=== PATIENT | male | born 1980 | race Caucasian/White ===

== ENCOUNTER 2016-03-28 17:19 | Inpatient (IN) | payer OTHER ==
[~2016-03-28] VITALS: Ht 167.6 cm; Wt 56.4 kg
[~2016-03-28 17:19] MED LIST: CARI350T28 PO; PRCUNK
[2016-03-28] MEDS ORDERED: PATIENT'S HEIGHT AND/OR WEIGHT NEEDED SCH (18:15)
[2016-03-28] MEDS ORDERED: PIPERACILL/TAZOBAC CONSULT ACTIVE PRN (18:15)
[2016-03-28] MEDS ORDERED: PIPERACILL/TAZOBAC IV 3.375 GM in DEXTROSE 5% 100ML 100 ML IV ONE (18:15)
[2016-03-28] MEDS ORDERED: ONDANSETRON INJ 2 MG/ML 2 ML VIAL IV PRN (18:15)
[2016-03-28] MEDS ORDERED: LEVE250T PO (18:17)
[2016-03-28] MEDS ORDERED: RTL20 PO (18:17)
[2016-03-28] MEDS ORDERED: ALPR1TAB3 PO (18:17)
[2016-03-28 18:20] VITALS: BP 113/76; PULSE 87; TEMP 36.8; Ht 167.6 cm; Wt 56.4 kg
[2016-03-28 18:56] LABS: HEMATOCRIT 30.7 % (42-52); MEAN CORPUSCULAR HEMOGLOBIN 29.2 pg (25-34); MEAN CORPUSCULAR HGB CONC 33.6 g/dl (32-36); MEAN PLATELET VOLUME 8.2 fL (7.4-10.4); PLATELET COUNT 596 K/uL (130-400); RED BLOOD COUNT 3.53 M/uL (4.7-6.1); WHITE BLOOD COUNT 19.22 K/uL (4.8-10.8)
[2016-03-28] MEDS ORDERED: PNEUMOCOCCAL POLYSACCHARIDES 25 MCG/0.5 ML VIAL/SYR IM. ONE (19:00)
[2016-03-28] MEDS ORDERED: PNEUMOCOCCAL ADMINISTRATION CHARGE ONE (19:00)
[2016-03-28] MEDS ORDERED: INFLUENZA ADMINISTRATION CHARGE ONE (19:00)
[2016-03-28] MEDS ORDERED: INFLUENZA VIRUS QUAD VACCINE 0.5 ML SYR IM. ONE (19:00)
[2016-03-28 19:14] LABS: BASO % 0.3 %; BASO ABS # 0.05 K/uL (0-0.2); COMPLETE YES; EOS % 0.4 %; IG% 0.5 %; LYMPH % 12.3 %; LYMPH ABS # 2.37 K/uL (1.2-3.4); MONO % 9.7 %; NEUT % 76.8 %
[2016-03-28 19:26] LABS: INR 1.1 (0.9-1.1)
[2016-03-28 19:28] LABS: BUN/CREATININE RATIO 16.6 (10-20); CREATININE 0.8 mg/dl (0.60-1.40); POTASSIUM 3.8 mmol/L (3.5-5.1)
[2016-03-28] MEDS ORDERED: VANCOMYCIN INJ 1,350 MG in SODIUM CHLORIDE 0.9% 250ML 250 ML IV ONE (19:30)
[2016-03-28] MEDS ORDERED: VANCOMYCIN INJ 1,000 MG in SODIUM CHLORIDE 0.9% 250ML 250 ML IV SCH (19:45)
--- NOTE | 2016-03-28 19:58 | Pharmacy Progress Note ---
Pharmacy Antibiotic Consult Date of Service: Mar 28, 2016. Pharmacy Dosing Scope Pharmacy is consulted to initiate Vancomycin and Zosyn IV dosing therapy, order appropriate labs and adjust drug dose/frequency. Subjective The patient is a 35 year old male admitted on Mar 28, 2016 at 17:51. H&P not available at the time of consult. Objective Height (Feet): 5 Height (Inches): 6.00 Weight (Kilograms): 58.500 Lab Results (24hrs): Laboratory Tests Test 03/28/16 18:36 BUN/Creatinine Ratio 16.6 Blood Urea Nitrogen 13 mg/dl Creatinine 0.80 mg/dl White Blood Count 19.22 K/uL Red Blood Count 3.53 M/uL Hemoglobin 10.3 g/dL Hematocrit 30.7 % Mean Corpuscular Volume 87.0 fL Mean Corpuscular Hemoglobin 29.2 pg Mean Corpuscular Hemoglobin Concent 33.6 g/dl Platelet Count 596 K/uL Mean Platelet Volume 8.2 fL Neutrophils (%) (Auto) 76.8 % Lymphocytes (%) (Auto) 12.3 % Monocytes (%) (Auto) 9.7 % Eosinophils (%) (Auto) 0.4 % Basophils (%) (Auto) 0.3 % Neutrophils # (Auto) 14.75 K/uL Lymphocytes # (Auto) 2.37 K/uL Monocytes # (Auto) 1.87 K/uL Eosinophils # (Auto) 0.08 K/uL Basophils # (Auto) 0.05 K/uL Micro Results: Item Value Date Time Blood Culture Received 03/28/16 1836 Blood Pending Blood Culture Received 03/28/16 1835 Blood Pending MRSA DNA Surveillance Screen Received 03/28/16 0000 Nasal Pending Assessment & Plan Assessment 35 year old male receiving empiric Vancomycin and Zosyn for suspected pulmonary infection. No PMH or previous culture data available at time of pharmacy consult. Plan Vancomycin IV dosing * Loading dose: 1350 mg (23 mg/kg) * Maintenance dose: 1000 mg (17 mg/kg) IV every 8 hours * PK estimates: ke = 0.0915 hr-1, T1/2 = 7.5 hr, Vd = 0.7 L/kg * Goal trough level estimate: between 15 - 20 mcg/mL. * MRSA nasal swab pending. * Trough level has been ordered for: . Zosyn * 3.375 g IV bolus, then 3.375g IV every 8 hours (ext. infusion) * No renal adjustment for CrCl > 20 ml/min Pharmacy will continue to follow and will adjust dose/frequency as necessary. Thank you
[2016-03-28] MEDS ORDERED: VANCOMYCIN CONSULT ACTIVE PRN (20:00)
[2016-03-28] MEDS: LEVETIRACETAM 250 MG TAB PO SCH (20:26)
[2016-03-28] MEDS: METHYLPHENIDATE HCL 10 MG TAB PO PRN (20:26)
[2016-03-28] MEDS: ALPRAZOLAM 0.5 MG TAB PO SCH (20:26)
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
[2016-03-28] MEDS ORDERED: FLUCONAZOLE / NSS 200 MG in PREMIXED NSS 100 ML IV SCH (21:00)
[2016-03-28] MEDS: HEPARIN SOD 5000 UNIT/0.5 ML CARP SQ SCH (21:33)
[2016-03-28 23:40] VITALS: BP 121/80; PULSE 88; TEMP 36.8; O2SAT 97
[2016-03-29] VITALS (8 sets, daily range): BP systolic 91–131; BP diastolic 60–81; PULSE 75–88; TEMP 36.5–36.8; O2SAT 92–98
[2016-03-29] MEDS: PIPERACILL/TAZOBAC IV 3.375 GM in DEXTROSE 5% 100ML 100 ML IV SCH ×4 (00:25→23:46)
[2016-03-29] MEDS: VANCOMYCIN INJ 1,000 MG in SODIUM CHLORIDE 0.9% 250ML 250 ML IV SCH ×3 (03:40→16:28)
[2016-03-29 06:41] LABS: BASO % 0.4 %; BASO ABS # 0.05 K/uL (0-0.2); COMPLETE YES; EOS % 0.9 %; HEMATOCRIT 30.7 % (42-52); IG% 0.6 %; LYMPH % 26.8 %; LYMPH ABS # 3.48 K/uL (1.2-3.4); MEAN CORPUSCULAR HEMOGLOBIN 29.2 pg (25-34); MEAN CORPUSCULAR HGB CONC 33.2 g/dl (32-36); MEAN PLATELET VOLUME 8.5 fL (7.4-10.4); MONO % 10.9 %; NEUT % 60.4 %; PLATELET COUNT 573 K/uL (130-400); RED BLOOD COUNT 3.49 M/uL (4.7-6.1); WHITE BLOOD COUNT 12.97 K/uL (4.8-10.8)
[2016-03-29 07:22] LABS: ALT/SGPT 38 U/L (12-78); AST/SGOT 16 U/L (15-37); BLOOD UREA NITROGEN 9 mg/dl (7-18); BUN/CREATININE RATIO 10.7 (10-20); CALCIUM 9.1 mg/dl (8.5-10.1); CARBON DIOXIDE 30 mmol/L (21-32); CHLORIDE 104 mmol/L (98-107); CREATININE 0.85 mg/dl (0.60-1.40); GLUCOSE 79 mg/dl (70-99); POTASSIUM 3.8 mmol/L (3.5-5.1); SODIUM 142 mmol/L (136-145)
[2016-03-29 07:25] LABS: ALKALINE PHOSPHATASE 74 U/L (45-117)
[2016-03-29] MEDS ORDERED: OPTIRAY 320 IV PRN (07:45)
--- NOTE | 2016-03-29 07:50 | Clinical Documentation Query ---
Dr. ALBERT URIEL : CLINICAL DOCUMENTATION QUERY Patient is a 35 year old male admitted with pulmonary abscess/pneumonia. Documentation includes "He has lost approximately 20 pounds over the past 3 months, not trying to lose weight, and he appears very thin and frail." Assessment documentation includes "cachectic". Documented weight loss represents > 13% loss (from initial body weight) over the stated interval. In your clinical opinion is this patient being managed for: ( X ) Severe protein-calorie malnutrition ( ) Other explanation of clinical findings (Please Explain) ( ) Unable to determine (Please Define) ( ) Need to Discuss ( ) Not Agree The medical record reflects the following clinical findings, treatment, and risk factors. Clinical Indicators: BMI 20.8 and as above Treatment: Serial labs, treatment of pneumonia/pulmonary abscess Risk Factors: Pneumonia with pulmonary abscess, TBI Malnutrition in Acute Illness/Injury Moderate or Severe Malnutrition defined by 2 of the following 6 criteria: CHARACTERISTICS MODERATE MALNUTRITION SEVERE MALNUTRITION ENERGY INTAKE <75% of estimated energyrequirement for > 7 days <50% of estimated energyrequirement for > 5 days WEIGHT LOSS 1-2%/1 Week5%/1 month7.5%/3 months >1-2%/1 Week>5%/1 month>7.5%/3 months BODY FAT*loss of SQ fat from the orbits, triceps, or fat overlying the ribs MILD MODERATE MUSCLE MASS*muscle wasting at the temples, clavicles, shoulders, interosseous spaces, scapula, thigh, calf MILD MODERATE FLUID ACCUMULATION*localized or generalized edema of the extremities, vulva, scrotum weight loss may be masked by edema MILD MODERATE-SEVERE DOWEL POINTER STRENGTH N/A measurably decreased per the device's standards Please clarify and document your clinical opinion in the progress notes and discharge summary. Terms such as "probable", "suspected", "likely", "questionable", "possible", or "still to be ruled out" are acceptable. IF IN AGREEMENT, YOU MUST DOCUMENT ABOVE DIAGNOSTIC STATEMENT IN DAILY PROGRESS NOTES AND DISCHARGE SUMMARY. This document is not part of the patient's record. Thank You, Jerzy Shirley, JESSICA [phone]
[2016-03-29] MEDS: METHYLPHENIDATE HCL 10 MG TAB PO PRN ×2 (08:39→12:33)
[2016-03-29] MEDS: ALPRAZOLAM 0.5 MG TAB PO SCH ×3 (08:39→20:40)
[2016-03-29] MEDS: LEVETIRACETAM 250 MG TAB PO SCH ×2 (08:42→20:40)
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
--- NOTE | 2016-03-29 10:32 | ECHOCARDIOGRAM REPORT ---
*NOTICE TO RECEIVING DEMOCRAT AGENCY This information is strictly Confidential and protected under [place] law. [place] law prohibits you from making any further disclosure of this information unless further disclosure is expressly permitted by the written consent of the person to whom it pertains or is authorized by law. A general authorization for the release of medical or other information is not sufficient for this purpose. Hospital accepts no responsibility if the information is made available to any other person, INCLUDING THE PATIENT. Interpretation Summary * Name: LUIS ANGEL RAUSCH JR Study Date: 03/29/2016 08:25 AM BP: 104/71 mmHg * Patient Location: .2T\S\E216\S\1 HR: 80 * : 1980 (M/d/yyyy) Gender: Male Height: 65 in * Age: 35 yrs Ethnicity: CA Weight: 128 lb * Ordering Physician: Kike Link * Performed By: Libia Govea RDCS * * Reason For Study: ?VEGETATIONS * BSA: 1.6 m2 * History: ?VEGETATIONS * -- Conclusions -- * 1. Normal LV size and wall thickness. * 2. Normal LV systolic function. LVEF 50-55%. No regional wall motion abnormalities. * 3. Normal RV size and function. * 4. No significant valvular pathology. No evidence of vegetations. * 5. No prior studies for comparison. Procedure Details * A complete two-dimensional transthoracic echocardiogram was performed (2D, M-mode, Doppler and color flow Doppler). Left Ventricle * The left ventricle is grossly normal size. * There is normal left ventricular wall thickness. * Ejection Fraction = 50-55%. Right Ventricle * The right ventricle is grossly normal size. * The right ventricular systolic function is normal as assessed by tricuspid annular plane systolic excursion (TAPSE) (normal >1.5 cm). Atria * The left atrial size is normal. * Right atrial size is normal. * No ASD detected; PFO is not assessed. Mitral Valve * The mitral valve is grossly normal. * There is no mitral valve stenosis. * There is trace mitral regurgitation. Tricuspid Valve * The tricuspid valve is not well visualized, but is grossly normal. * There is no tricuspid stenosis. * Significant tricuspid regurgitation is absent. Aortic Valve * The aortic valve opens well. * The aortic valve is trileaflet. * No hemodynamically significant valvular aortic stenosis. * No aortic regurgitation is present. Pulmonic Valve * The pulmonary valve is inadequately visualized, but the Doppler data is adequate for interpretation. * There is no pulmonic valvular stenosis. * Trace pulmonic valvular regurgitation. Great Vessels * The aortic root and proximal ascending aorta are normal sized. Pericardium/Pleural * There is no pericardial effusion. Great Vessels * Normal inferior vena cava size and collapsability with sniff indicates a normal right atrial pressure of 3 mmHg MMode 2D Measurements and Calculations IVSd 0.87 cm IVSs 0.85 cm LVIDd 4.0 cm LVIDs 3.0 cm LVPWd 1.2 cm LVPWs 1.7 cm IVS/LVPW 0.72 FS 24.2 % EDV(Teich) 68.2 ml ESV(Teich) 34.9 ml EF(Teich) 48.8 % EDV(cubed) 61.9 ml ESV(cubed) 26.9 ml EF(cubed) 56.5 % % IVS thick -1.60 % % LVPW thick 44.0 % LV mass(C)d 130.8 grams LV mass(C)dI 79.9 grams/m\S\2 LV mass(C)s 122.5 grams LV mass(C)sI 74.9 grams/m\S\2 SV(Teich) 33.3 ml SI(Teich) 20.3 ml/m\S\2 SV(cubed) 35.0 ml SI(cubed) 21.4 ml/m\S\2 Ao root diam 3.4 cm Ao root area 8.9 cm\S\2 LA dimension 2.8 cm LA/Ao 0.83 LVAd ap4 33.3 cm\S\2 LVLd ap4 8.3 cm EDV(MOD-sp4) 109.3 ml EDV(sp4-el) 114.1 ml LVAs ap4 21.8 cm\S\2 LVLs ap4 7.2 cm ESV(MOD-sp4) 54.9 ml ESV(sp4-el) 55.9 ml EF(MOD-sp4) 49.8 % EF(sp4-el) 51.0 % LVAd ap2 30.2 cm\S\2 LVLd ap2 7.8 cm EDV(MOD-sp2) 95.0 ml EDV(sp2-el) 99.2 ml LVAs ap2 19.6 cm\S\2 LVLs ap2 7.0 cm ESV(MOD-sp2) 46.5 ml ESV(sp2-el) 46.4 ml EF(MOD-sp2) 51.0 % EF(sp2-el) 53.3 % LVLd %diff -6.01 % EDV(MOD-bp) 104.7 ml LVLs %diff -3.16 % ESV(MOD-bp) 51.6 ml EF(MOD-bp) 50.7 % SV(MOD-sp4) 54.4 ml SI(MOD-sp4) 33.3 ml/m\S\2 SV(MOD-sp2) 48.4 ml SI(MOD-sp2) 29.6 ml/m\S\2 SV(MOD-bp) 53.1 ml SI(MOD-bp) 32.4 ml/m\S\2 SV(sp4-el) 58.2 ml SI(sp4-el) 35.6 ml/m\S\2 SV(sp2-el) 52.9 ml SI(sp2-el) 32.3 ml/m\S\2 Doppler Measurements and Calculations MV E max nyla 57.8 cm/sec MV A max nyla 46.8 cm/sec MV E/A 1.2 MV dec time 0.19 sec Ao V2 max 80.6 cm/sec Ao max PG 2.6 mmHg Ao max PG (full) 0.43 mmHg LV V1 max PG 2.2 mmHg LV V1 max 73.6 cm/sec
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
[2016-03-30] VITALS (9 sets, daily range): BP systolic 98–144; BP diastolic 54–93; PULSE 71–88; TEMP 36.5–36.7; O2SAT 92–97
[2016-03-30] MEDS: VANCOMYCIN INJ 1,000 MG in SODIUM CHLORIDE 0.9% 250ML 250 ML IV SCH ×3 (02:01→17:46)
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
[2016-03-30] MEDS: LEVETIRACETAM 250 MG TAB PO SCH ×2 (08:10→21:05)
[2016-03-30] MEDS: ALPRAZOLAM 0.5 MG TAB PO SCH ×3 (08:16→21:05)
[2016-03-30] MEDS: BOOST VANILLA PO SCH ×6 (08:16→16:21)
[2016-03-30] MEDS: PIPERACILL/TAZOBAC IV 3.375 GM in DEXTROSE 5% 100ML 100 ML IV SCH ×3 (08:17→23:28)
[2016-03-30] MEDS: METHYLPHENIDATE HCL 10 MG TAB PO PRN (08:22)
[2016-03-30] MEDS: METHYLPHENIDATE HCL 10 MG TAB PO SCH ×3 (09:00→21:05)
[2016-03-30] MEDS ORDERED: VANCOMYCIN TROUGH SCH (09:30)
[2016-03-30 09:54] LABS: HEMATOCRIT 29.1 % (42-52); MEAN CELL VOLUME 87.1 fL (80-100); MEAN CORPUSCULAR HEMOGLOBIN 28.4 pg (25-34); MEAN CORPUSCULAR HGB CONC 32.6 g/dl (32-36); MEAN PLATELET VOLUME 8.2 fL (7.4-10.4); PLATELET COUNT 554 K/uL (130-400); RED BLOOD COUNT 3.34 M/uL (4.7-6.1); WHITE BLOOD COUNT 10.87 K/uL (4.8-10.8)
[2016-03-30 10:17] LABS: BASO % 0.5 %; BASO ABS # 0.05 K/uL (0-0.2); COMPLETE YES; IG% 0.6 %; LYMPH % 29.3 %; LYMPH ABS # 3.19 K/uL (1.2-3.4); MONO % 10.6 %
--- NOTE | 2016-03-30 10:24 | PULMONARY PROGRESS NOTE ---
DATE: 03/30/2016 DATE: 03/30/2016. TIME: 9:25 a.m. SUBJECTIVE: The patient feels better. He is still expectorating mucus. It is green today. The mucus is loose, he states. His attitude seems better. His energy level actually seems a bit better. He does not complain of chills, fevers or sweats. OBJECTIVE: GENERAL: The patient is comfortable at rest. His significant other was with him. He is afebrile. He has had no significant fevers since admission. EARS, NOSE, THROAT: Unremarkable. VITAL SIGNS: Cardiac rate was 72 per minute. Rhythm was regular. Blood pressure 106/54. Oxygen saturation is 97% on room air. CHEST: Inspection of the chest reveals mild to moderate rhonchi on the right chest greater than the left chest. ABDOMEN: Soft and nontender. EXTREMITIES: Showed no cyanosis, clubbing or edema. LABORATORY DATA: Sputum Gram stain showed moderate gram positive cocci with many polys. Blood cultures thus far negative. Nasal swab was negative for MRSA. AFBs have yet to be collected. CBC today for is pending. Chemistry for today likewise is pending as well. TB Gold interferon is pending. IMPRESSIONS: 1. Cavitary lung disease, right upper lobe. 2. Seizure disorder. 3. History of hepatitis C. The patient most likely has a lung abscess. TB or neoplasm are to be excluded. Would continue with the antibiotics for now. At present, he is on vancomycin, Zosyn, and his usual medications. The patient likely does not need to have EKG monitoring. This is deferred to the hospitalist team.
[2016-03-30 10:27] LABS: CREATININE 0.75 mg/dl (0.60-1.40)
--- NOTE | 2016-03-30 11:38 | Pharmacy Progress Note ---
Pharmacy Antibiotic Prog Note Date of Service: Mar 30, 2016. Subjective: The patient is currently receiving Vancomycin 1000 mg IV every 8 hours. The patient is currently on day # 3 of Vancomycin IV therapy. Objective: Height (Feet): 5 Height (Inches): 6.00 Weight (Kilograms): 56.400 Lab Results (24hrs): Laboratory Tests Test 03/30/16 09:14 Creatinine 0.75 mg/dl White Blood Count 10.87 K/uL Red Blood Count 3.34 M/uL Hemoglobin 9.5 g/dL Hematocrit 29.1 % Mean Corpuscular Volume 87.1 fL Mean Corpuscular Hemoglobin 28.4 pg Mean Corpuscular Hemoglobin Concent 32.6 g/dl Platelet Count 554 K/uL Mean Platelet Volume 8.2 fL Neutrophils (%) (Auto) 57.0 % Lymphocytes (%) (Auto) 29.3 % Monocytes (%) (Auto) 10.6 % Eosinophils (%) (Auto) 2.0 % Basophils (%) (Auto) 0.5 % Neutrophils # (Auto) 6.19 K/uL Lymphocytes # (Auto) 3.19 K/uL Monocytes # (Auto) 1.15 K/uL Eosinophils # (Auto) 0.22 K/uL Basophils # (Auto) 0.05 K/uL Micro Results: Item Value Date Time MRSA DNA Surveillance Screen - Final Complete 03/28/16 0000 Nasal Specimen Negative for MRSA by DNA Probe Blood Culture - Preliminary Resulted 03/28/16 1835 Blood NO GROWTH TO DATE. Blood Culture - Preliminary Resulted 03/28/16 1836 Blood NO GROWTH TO DATE. Gram Stain - Final Resulted 03/29/16 0830 Sputum Expectorated Sputum Acid Fast Stain Ordered 03/30/16 0920 Sputum Expectorated Sputum Pending Acid Fast Stain Received 03/30/16 1005 Sputum Trans Trach Needle Asp. Pending Assessment & Plan: Assessment * 35 y/o M on empiric IV Vancomycin and Zosyn for pneumonia/pulmonary abscess. Patient improving per provider progress notes. He remains afebrile with decreasing WBC's. MRSA nasal swab is negative, but Pulmonology would like to continue Vancomycin until sputum culture results. * Goal Vancomycin trough 15-20 mcg/mL * Trough level on 03/30 @ 0933 (appropriately drawn) of 16.6 mcg/mL is within the therapeutic range. Renal function remains stable. Plan VANCOMYCIN * Continue Vancomycin 1000mg (~17mg/kg) IV q8 * Recheck trough in 2 days to make sure Vancomycin remains within the therapeutic range * Trough level ordered for 04/01 @ 0930 ZOSYN * Continue Zosyn 3.375g IV q8 (extended infusion over 4 hours) for CrCl >20 mL/ min Pharmacy will continue to follow and will adjust dose/frequency as necessary. Thank you
[2016-03-30] MEDS: HEPARIN SOD 5000 UNIT/0.5 ML CARP SQ SCH (21:06)
[2016-03-31] MEDS: VANCOMYCIN INJ 1,000 MG in SODIUM CHLORIDE 0.9% 250ML 250 ML IV SCH ×3 (01:45→18:27)
[2016-03-31] MEDS: HEPARIN SOD 5000 UNIT/0.5 ML CARP SQ SCH (06:21)
[2016-03-31 07:32] VITALS: BP 93/56; PULSE 81; TEMP 36.6; O2SAT 96
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
[2016-03-31] MEDS: LEVETIRACETAM 250 MG TAB PO SCH ×2 (07:55→21:17)
[2016-03-31] MEDS: BOOST VANILLA PO SCH ×6 (07:55→18:27)
[2016-03-31] MEDS: PIPERACILL/TAZOBAC IV 3.375 GM in DEXTROSE 5% 100ML 100 ML IV SCH ×3 (07:55→23:42)
[2016-03-31] MEDS: METHYLPHENIDATE HCL 10 MG TAB PO SCH ×3 (07:55→21:17)
[2016-03-31] MEDS: ALPRAZOLAM 0.5 MG TAB PO SCH ×3 (07:55→21:17)
[2016-03-31 07:57] VITALS: BP 111/75; TEMP 36.4; O2SAT 97
[2016-03-31 09:14] LABS: HEMATOCRIT 31.9 % (42-52); MEAN CELL VOLUME 87.2 fL (80-100); MEAN CORPUSCULAR HGB CONC 33.2 g/dl (32-36); MEAN PLATELET VOLUME 8.4 fL (7.4-10.4); PLATELET COUNT 587 K/uL (130-400); RED BLOOD COUNT 3.66 M/uL (4.7-6.1); WHITE BLOOD COUNT 9.65 K/uL (4.8-10.8)
[2016-03-31 09:39] LABS: BUN/CREATININE RATIO 10.8 (10-20); CALCIUM 9.1 mg/dl (8.5-10.1); COMPLETE YES; CREATININE 0.9 mg/dl (0.60-1.40); EOSINOPHIL % 0.9 %; LYMPH ABS # 3.39 K/uL (1.2-3.4); LYMPHOCYTE % 35.1 %; MYELOCYTE % 0.9 %; NEUTROPHILS % 56.1 %; PLASMA CELL 0.9 %; POTASSIUM 3.8 mmol/L (3.5-5.1)
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
--- NOTE | 2016-03-31 13:30 | PULMONARY PROGRESS NOTE ---
DATE: 03/31/2016 TIME: 12:30 p.m. SUBJECTIVE: The patient generally feels better. His appetite has improved. He is still coughing. He has started to expectorate some blood. He did this twice when I was present bringing up blood mixed with mucus. Each specimen was approximately the size of a nickel. He is not having any chest pains. He denies chills, fevers or sweats. OBJECTIVE: GENERAL: The patient appeared comfortable. Temperature was 36.4. There was no evidence of any epistaxis. Mouth exam was negative. No lymph nodes are palpable. HEART: Heart rate was 80 beats per minute. Blood pressure 111/75. LUNGS: Lung campblel were fairly clear, just a few rhonchi were heard on the right. Oxygen saturation is 97% on room air. ABDOMEN: Soft and nontender. EXTREMITIES: Showed no cyanosis, clubbing or edema. LABORATORY DATA: White count is down to 9.65. It had been 19.22 on admission. Hemoglobin is 10.6, on admission was 10.3. Platelets are 587,000. The differential shows 56.1 neutrophils, 35.1 lymphs, 6.1 mono, 0.9 eos, 0.9 myelocytes. Sodium is 140, potassium 3.8, chloride 104, bicarb 27. BUN was 10 with a creatinine of 0.9. Blood sugar is 139. TB QuantiFERON is still pending. Sputum for AFB x1 was negative. Sputum Gram stain reports light growth of normal edwin. Blood cultures are negative. ASSESSMENT: 1. Right upper lobe cavitary disease -- questionable abscess versus others. 2. Hemoptysis. 3. Seizure disorder. COMMENTS AND RECOMMENDATIONS: The patient clinically is improved. His white count is better. He has, however, started to expectorate blood. In light of this I am going to stop the subQ heparin which he has been getting 5000 units q. 8 hours. I explained to him that if he would bring up a large amount of blood he certainly would need bronchoscopy then. I would continue with the Zosyn and vancomycin for now. I am going to send today's sputum for cytology. Dr. Morocho will be seeing the patient as of tomorrow from the pulmonary division.
[2016-03-31 15:57] VITALS: BP 112/73; TEMP 36.4; O2SAT 93
[2016-03-31 23:10] VITALS: BP 114/72; PULSE 95; TEMP 36.6; O2SAT 97
[2016-04-01] MEDS: VANCOMYCIN INJ 1,000 MG in SODIUM CHLORIDE 0.9% 250ML 250 ML IV SCH ×2 (01:46→10:12)
[2016-04-01] MEDS ORDERED: OXYCODONE/ACETAMINOPHEN 5-325 TAB PO PRN (04:30)
[2016-04-01 07:13] VITALS: BP 97/63; PULSE 76; TEMP 36.5; O2SAT 97
[2016-04-01 08:06] LABS: BASO ABS # 0.09 K/uL (0-0.2); COMPLETE YES; EOS % 2.6 %; HEMATOCRIT 33.3 % (42-52); IG% 1.6 %; LYMPH % 36.2 %; MEAN CELL VOLUME 87.4 fL (80-100); MEAN CORPUSCULAR HEMOGLOBIN 28.6 pg (25-34); MEAN CORPUSCULAR HGB CONC 32.7 g/dl (32-36); MONO % 11.3 %; NEUT % 47.3 %; PLATELET COUNT 574 K/uL (130-400); RED BLOOD COUNT 3.81 M/uL (4.7-6.1)
[2016-04-01] MEDS: ALPRAZOLAM 0.5 MG TAB PO SCH ×3 (08:11→20:34)
[2016-04-01] MEDS: METHYLPHENIDATE HCL 10 MG TAB PO SCH ×3 (08:11→20:34)
[2016-04-01] MEDS: BOOST VANILLA PO SCH ×6 (08:11→19:43)
[2016-04-01] MEDS: LEVETIRACETAM 250 MG TAB PO SCH ×2 (08:11→20:35)
[2016-04-01] MEDS: PIPERACILL/TAZOBAC IV 3.375 GM in DEXTROSE 5% 100ML 100 ML IV SCH ×3 (08:13→23:41)
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
[2016-04-01 08:32] LABS: CALCIUM 9.4 mg/dl (8.5-10.1); CREATININE 0.76 mg/dl (0.60-1.40); POTASSIUM 3.9 mmol/L (3.5-5.1)
[2016-04-01] MEDS ORDERED: VANCOMYCIN TROUGH ONE (09:30)
--- NOTE | 2016-04-01 10:22 | Infectious Disease Progress Nt ---
Progress Note Date of Service Apr 01, 2016. Subjective Pt evaluation today including: conversation w/ patient, physical exam, chart review, lab review, review of studies, conversation w/ sfdc consultant (Dr. Grover), review of inpatient medication list WBC count is 9.40. Hgb this morning was 10.9. Creatinine was 0.76. Blood cultures continue to show no growth. Sputum culture shows light normal edwin. AFB culture showing No AFB on gram stain. Culture is pending. Quantiferon is still pending. Patient states that his appetite is much improved. He does comment that he hasn' t been able to smoke any cigarettes. He confirms that he has been smoking since he was 14 years old. He states that his breathing is much improved today. He states that he continues to have a mild cough. He did cough up some bloody sputum yesterday, but states that he has had none today. Repeat AFB culture is pending. All Other Systems: Reviewed and Negative Medications Current Inpatient Medications Medications (Trade) Dose Ordered Sig/Ernesto Route Start Time Stop Time Status Last Admin Dose Admin Ondansetron HCl 4 mg 4 mg Q6H PRN IV 03/28/16 18:15 04/27/16 18:14 Piperacillin Sod/ Tazobactam Sod/ Dextrose (Zosyn Iv/D5 100ml) 115 ml @ 28.75 mls/ hr Q8H IV 03/29/16 00:00 04/10/16 17:59 04/01/16 08:13 28.75 MLS/HR Piperacillin Sod/ Tazobactam Sod (Consult) 1 ea UD PRN N/A 03/28/16 18:15 04/27/16 18:14 Alprazolam (Xanax Tab) 1 mg TID PO 03/28/16 21:00 04/27/16 20:59 04/01/16 08:11 1 MG Levetiracetam 250 mg 250 mg BID PO 03/28/16 21:00 04/27/16 20:59 04/01/16 08:11 250 MG Vancomycin HCl/ Sodium Chloride (Vancomycin Inj/ Nss 250ml) 270 ml @ 125 mls/hr Q8H IV 03/29/16 02:00 04/04/16 18:59 04/01/16 10:12 125 MLS/HR Vancomycin HCl (Consult) 1 ea UD PRN N/A 03/28/16 20:00 04/27/16 19:59 Ioversol (Optiray 320) 111 ml UD PRN IV 03/29/16 07:45 04/02/16 07:44 Enteral Nutritional Formula (Boost) 1 can TIDM PO 03/30/16 07:45 04/29/16 07:44 04/01/16 08:11 1 CAN Methylphenidate HCl (Ritalin Tab) 20 mg TID PO 03/30/16 09:00 04/13/16 08:59 04/01/16 08:11 20 MG Oxycodone/ Acetaminophen (Percocet 5-325mg Tab) 1 tab Q6 PRN PO 04/01/16 04:30 04/15/16 04:29 Objective Vital Signs Date Time Temp Pulse Resp B/P Pulse Ox O2 Delivery O2 Flow Rate FiO2 04/01/16 08:00 Room Air 04/01/16 07:13 36.5 76 16 97/63 97 Room Air 03/31/16 23:45 Room Air 03/31/16 23:10 36.6 95 16 114/72 97 Room Air 03/31/16 16:50 Room Air 03/31/16 15:57 36.4 18 112/73 93 Room Air Physical Exam General Appearance: no apparent distress, + thin Eyes: normal inspection, sclerae normal ENT: hearing grossly normal Neck: supple, trachea midline Respiratory/Chest: chest non-tender, no respiratory distress, no accessory muscle use, + crackles (mild right lower lobe- otherwise mostly clear lung sounds) Cardiovascular: regular rate, rhythm Abdomen: normal bowel sounds, non tender, soft Extremities: normal range of motion Neurologic/Psychiatric: alert, normal mood/affect Skin: normal color, warm/dry, no rash Laboratory Results RUN DATE: 03/31/16 [facility] LAB PAGE 1 RUN TIME: 1127 Specimen Inquiry PATIENT: LUIS ANGEL RAUSCH JR LOC: CHRISTOPHER U # : [id number] AGE/SX: 35/M ROOM: [facility] REG : 03/28/[address]: Zheng Cavanaugh MD : [id number] BED: 1 DIS : STATUS: ADM IN TLOC: SPEC #: [id number] TARSHA: 03/30/16-1005 STATUS: RES REQ #: [id number] RECD: 03/30/[id number] SUBM DR: Alessandra Michele PA-C SOURCE: SPUTUM ENTR: 03/30/[address] [facility] [address]: Junie Dennis PA-C SPDESC: EXP.SPUTUM No Doctor, Kike Tracey, Nikolay Daugherty MD Zayets, Stanislav MD ORDERED: AFB/TB CULT/SMR Procedure Result Verified Site AFB SMEAR Final 03/31/16-1127 RESULTS NO ACID-FAST BACILLI SEEN AFB CULTURE PENDING Item Value Date Time Acid Fast Stain Received 03/31/16 0000 Sputum Trans Trach Needle Asp. Pending Acid Fast Stain - Final Resulted 03/30/16 1005 Sputum Expectorated Sputum Gram Stain - Final Complete 03/29/16 0830 Sputum Expectorated Sputum Blood Culture - Preliminary Resulted 03/28/16 1836 Blood NO GROWTH TO DATE. Blood Culture - Preliminary Resulted 03/28/16 1835 Blood NO GROWTH TO DATE. Last 24 Hours Test 04/01/16 07:50 04/01/16 09:46 White Blood Count 9.40 K/uL Red Blood Count 3.81 M/uL Hemoglobin 10.9 g/dL Hematocrit 33.3 % Mean Corpuscular Volume 87.4 fL Mean Corpuscular Hemoglobin 28.6 pg Mean Corpuscular Hemoglobin Concent 32.7 g/dl Platelet Count 574 K/uL Mean Platelet Volume 8.0 fL Neutrophils (%) (Auto) 47.3 % Lymphocytes (%) (Auto) 36.2 % Monocytes (%) (Auto) 11.3 % Eosinophils (%) (Auto) 2.6 % Basophils (%) (Auto) 1.0 % Neutrophils # (Auto) 4.46 K/uL Lymphocytes # (Auto) 3.40 K/uL Monocytes # (Auto) 1.06 K/uL Eosinophils # (Auto) 0.24 K/uL Basophils # (Auto) 0.09 K/uL RDW Standard Deviation 44.2 fL RDW Coefficient of Variation 14.0 % Immature Granulocyte % (Auto) 1.6 % Immature Granulocyte # (Auto) 0.15 K/uL Sodium Level 141 mmol/L Potassium Level 3.9 mmol/L Chloride Level 105 mmol/L Carbon Dioxide Level 29 mmol/L Anion Gap 7.0 mmol/L Blood Urea Nitrogen 14 mg/dl Creatinine 0.76 mg/dl Est Creatinine Clear Calc Drug Dose 107.2 ml/min Estimated GFR () 136.0 Estimated GFR (Non- 117.4 BUN/Creatinine Ratio 18.0 Random Glucose 91 mg/dl Calcium Level 9.4 mg/dl Assessment and Plan (1) Pulmonary abscess Patient with cavitary right upper lobe pulmonary lesion on imaging prior to admission with leukocytosis on admission, sputum production, and chronic cough in the setting of previous fdc time, longer term smoking history, and chronic seizure disorder. Will continue Zosyn, but because his sputum culture is showing light normal edwin and MRSA nasal screen was negative, will D/C Vancomycin. Continue Airborne precautions pending Quantiferon. I spoke to Dr. Morocho- may consider biopsy of right upper lobe lesion and repeat imaging in 6 weeks. Transthoracic Echocardiogram showed no vegetation. Blood cultures currently show NGTD. We will continue to follow this patient and adjust therapy as able. Plan: 1. Continue Zosyn 2. D/C Vancomycin 3. Follow cultures/Quantiferon gold
--- NOTE | 2016-04-01 11:47 | Pulmonology Progress Note ---
Pulmonary Progress Note Date of Service Apr 01, 2016. Attending Nikolay Morocho Subjective Patient doing well today with green sputum produced over the last 24 hours and no hemoptysis: No: chest pain or pleurisy Objective Patient with no signs of increased work of breathing. Able to complete our conversation with no interruptions VS: reviewed and WNL RESP: bilateral rhonchi R>L and anterior>posterior CARD: RRR no M/R/G ABD: soft non-tender no rebound Labs and CT chest reviewed Assessment & Plan 35y/o male with RUL cavitary lesion: 1) Cavitary Lesion: Will require f/u with repeat CT thorax in 6 weeks. At this time, as the patient is improving, performing bronchoscopy for microbial evaluation would be of no benefit as he is on broad spectrum antibiotic coverage. If patient deteriorates bronchoscopy would be warranted. 2) TB: Sputum sent but it appears that only two have been collected for AFB will need a third and will send in am. Quant-Gold pending. Data Medications: Current Inpatient Medications Medications (Trade) Dose Ordered Sig/Ernesto Route Start Time Stop Time Status Last Admin Dose Admin Ondansetron HCl 4 mg 4 mg Q6H PRN IV 03/28/16 18:15 04/27/16 18:14 Piperacillin Sod/ Tazobactam Sod/ Dextrose (Zosyn Iv/D5 100ml) 115 ml @ 28.75 mls/ hr Q8H IV 03/29/16 00:00 04/10/16 17:59 04/01/16 08:13 28.75 MLS/HR Piperacillin Sod/ Tazobactam Sod (Consult) 1 ea UD PRN N/A 03/28/16 18:15 04/27/16 18:14 Alprazolam (Xanax Tab) 1 mg TID PO 03/28/16 21:00 04/27/16 20:59 04/01/16 08:11 1 MG Levetiracetam (Keppra Tab) 250 mg BID PO 03/28/16 21:00 04/27/16 20:59 04/01/16 08:11 250 MG Ioversol (Optiray 320) 111 ml UD PRN IV 03/29/16 07:45 04/02/16 07:44 Enteral Nutritional Formula (Boost) 1 can TIDM PO 03/30/16 07:45 04/29/16 07:44 04/01/16 08:11 1 CAN Methylphenidate HCl (Ritalin Tab) 20 mg TID PO 03/30/16 09:00 04/13/16 08:59 04/01/16 08:11 20 MG Oxycodone/ Acetaminophen (Percocet 5-325mg Tab) 1 tab Q6 PRN PO 04/01/16 04:30 04/15/16 04:29 I & O: 24-Hour Column 04/01/16 08:00 Intake Total 2555 ml Balance 2555 ml Vital Signs: Date Time Temp Pulse Resp B/P Pulse Ox O2 Delivery O2 Flow Rate FiO2 04/01/16 08:00 Room Air 04/01/16 07:13 36.5 76 16 97/63 97 Room Air 03/31/16 23:45 Room Air 03/31/16 23:10 36.6 95 16 114/72 97 Room Air 03/31/16 16:50 Room Air 03/31/16 15:57 36.4 18 112/73 93 Room Air Laboratory Results: Last 24 Hours Test 04/01/16 07:50 04/01/16 09:46 White Blood Count 9.40 K/uL Red Blood Count 3.81 M/uL Hemoglobin 10.9 g/dL Hematocrit 33.3 % Mean Corpuscular Volume 87.4 fL Mean Corpuscular Hemoglobin 28.6 pg Mean Corpuscular Hemoglobin Concent 32.7 g/dl Platelet Count 574 K/uL Mean Platelet Volume 8.0 fL Neutrophils (%) (Auto) 47.3 % Lymphocytes (%) (Auto) 36.2 % Monocytes (%) (Auto) 11.3 % Eosinophils (%) (Auto) 2.6 % Basophils (%) (Auto) 1.0 % Neutrophils # (Auto) 4.46 K/uL Lymphocytes # (Auto) 3.40 K/uL Monocytes # (Auto) 1.06 K/uL Eosinophils # (Auto) 0.24 K/uL Basophils # (Auto) 0.09 K/uL RDW Standard Deviation 44.2 fL RDW Coefficient of Variation 14.0 % Immature Granulocyte % (Auto) 1.6 % Immature Granulocyte # (Auto) 0.15 K/uL Sodium Level 141 mmol/L Potassium Level 3.9 mmol/L Chloride Level 105 mmol/L Carbon Dioxide Level 29 mmol/L Anion Gap 7.0 mmol/L Blood Urea Nitrogen 14 mg/dl Creatinine 0.76 mg/dl Est Creatinine Clear Calc Drug Dose 107.2 ml/min Estimated GFR () 136.0 Estimated GFR (Non- 117.4 BUN/Creatinine Ratio 18.0 Random Glucose 91 mg/dl Calcium Level 9.4 mg/dl Vancomycin Level Trough 15.1 mcg/ml
[2016-04-01 15:47] VITALS: BP 116/81; PULSE 95; TEMP 36.6; O2SAT 98
[2016-04-01 16:30] VITALS: O2SAT 98
[2016-04-01 16:31] LABS: QUANTIF TB AG-NIL <0.00 IU/ML; QUANTIFERON NIL 0.02 IU/ML
[2016-04-01 23:15] VITALS: BP 112/75; PULSE 91; TEMP 36.8; O2SAT 97
[2016-04-02 07:31] VITALS: BP 99/63; PULSE 73; TEMP 36.4; O2SAT 96
[2016-04-02] MEDS: PIPERACILL/TAZOBAC IV 3.375 GM in DEXTROSE 5% 100ML 100 ML IV SCH (07:58)
[2016-04-02 08:11] LABS: BASO ABS # 0.12 K/uL (0-0.2); COMPLETE YES; EOS % 3.7 %; HEMATOCRIT 36.5 % (42-52); IG% 2.1 %; LYMPH ABS # 4.23 K/uL (1.2-3.4); MEAN CORPUSCULAR HEMOGLOBIN 29.2 pg (25-34); MEAN CORPUSCULAR HGB CONC 33.2 g/dl (32-36); MONO % 11.4 %; NEUT % 44.8 %; PLATELET COUNT 570 K/uL (130-400); RED BLOOD COUNT 4.15 M/uL (4.7-6.1); WHITE BLOOD COUNT 11.44 K/uL (4.8-10.8)
[2016-04-02 08:49] LABS: CALCIUM 9.1 mg/dl (8.5-10.1); CREATININE 0.91 mg/dl (0.60-1.40); POTASSIUM 3.8 mmol/L (3.5-5.1)
[2016-04-02] MEDS: METHYLPHENIDATE HCL 10 MG TAB PO SCH ×2 (09:35→13:21)
[2016-04-02] MEDS: BOOST VANILLA PO SCH ×4 (09:35→13:22)
[2016-04-02] MEDS: LEVETIRACETAM 250 MG TAB PO SCH (09:35)
[2016-04-02] MEDS: ALPRAZOLAM 0.5 MG TAB PO SCH ×2 (09:35→13:21)
--- NOTE | 2016-04-02 14:50 | Pulmonology Progress Note ---
Pulmonary Progress Note Date of Service Apr 02, 2016. Attending Nikolay Morocho Subjective Patient is doing well today continues productive sputum but no pleurisy, fever, chills or shortness of breath Objective Patient able to complete full sentences no signs of increased work of breath was able to ambulate around the room with no signs of dyspnea VS: reviewed and WNL RESP: bilateral rhonchi R>L and anterior>posterior CARD: RRR no M/R/G ABD: soft non-tender no rebound WBC: Increased to 11,000 QuantiFERON Gold negative with positive positive immune response by the patient with a mitogen controlled to Microbiology: Reviewed no signs of growth AFB 03/30/16: Satisfactory/culture pending AFB 20/11/16: Satisfactory/culture pending AFB 04/02/16: Satisfactory/culture pending Pathology sputum sample: Poor sample Assessment & Plan 35y/o male with RUL cavitary lesion: 1) Cavitary Lesion: I was able to show the patient has CT images and described the cavitary lesion. We discussed follow-up in the next 2 weeks at the [place] and then repeat CAT scan in follow-up 6 weeks after initial CAT scan. 2) AFB: 3 AFB sputums have been obtained and QuantiFERON Gold study is negative. Patient did have a good mitogen response suggesting he has a proper immune system. At this time I will take him out of respiratory isolation. #3 ID: We'll defer antibiotic treatment and length of course to infectious disease. #4 follow-up: We'll sign off at this time patient follow up at the [place]. Data Medications: Current Inpatient Medications Medications (Trade) Dose Ordered Sig/Ernesto Route Start Time Stop Time Status Last Admin Dose Admin Ondansetron HCl 4 mg 4 mg Q6H PRN IV 03/28/16 18:15 04/27/16 18:14 Piperacillin Sod/ Tazobactam Sod/ Dextrose (Zosyn Iv/D5 100ml) 115 ml @ 28.75 mls/ hr Q8H IV 03/29/16 00:00 04/10/16 17:59 04/02/16 07:58 28.75 MLS/HR Piperacillin Sod/ Tazobactam Sod (Consult) 1 ea UD PRN N/A 03/28/16 18:15 04/27/16 18:14 Alprazolam (Xanax Tab) 1 mg TID PO 03/28/16 21:00 04/27/16 20:59 04/02/16 13:21 1 MG Levetiracetam (Keppra Tab) 250 mg BID PO 03/28/16 21:00 04/27/16 20:59 04/02/16 09:35 250 MG Enteral Nutritional Formula (Boost) 1 can TIDM PO 03/30/16 07:45 04/29/16 07:44 04/02/16 13:22 1 CAN Methylphenidate HCl (Ritalin Tab) 20 mg TID PO 03/30/16 09:00 04/13/16 08:59 04/02/16 13:21 20 MG Oxycodone/ Acetaminophen (Percocet 5-325mg Tab) 1 tab Q6 PRN PO 04/01/16 04:30 04/15/16 04:29 04/01/16 23:48 1 TAB I & O: 24-Hour Column 04/02/16 07:59 Intake Total 336 ml Balance 336 ml Vital Signs: Date Time Temp Pulse Resp B/P Pulse Ox O2 Delivery O2 Flow Rate FiO2 04/02/16 08:21 Room Air 04/02/16 07:31 36.4 73 14 99/63 96 Room Air 04/01/16 23:40 Room Air 04/01/16 23:15 36.8 91 16 112/75 97 Room Air 04/01/16 16:30 98 Room Air 04/01/16 15:47 36.6 95 18 116/81 98 Room Air Laboratory Results: Last 24 Hours Test 04/02/16 07:55 White Blood Count 11.44 K/uL Red Blood Count 4.15 M/uL Hemoglobin 12.1 g/dL Hematocrit 36.5 % Mean Corpuscular Volume 88.0 fL Mean Corpuscular Hemoglobin 29.2 pg Mean Corpuscular Hemoglobin Concent 33.2 g/dl Platelet Count 570 K/uL Mean Platelet Volume 8.0 fL Neutrophils (%) (Auto) 44.8 % Lymphocytes (%) (Auto) 37.0 % Monocytes (%) (Auto) 11.4 % Eosinophils (%) (Auto) 3.7 % Basophils (%) (Auto) 1.0 % Neutrophils # (Auto) 5.13 K/uL Lymphocytes # (Auto) 4.23 K/uL Monocytes # (Auto) 1.30 K/uL Eosinophils # (Auto) 0.42 K/uL Basophils # (Auto) 0.12 K/uL RDW Standard Deviation 44.9 fL RDW Coefficient of Variation 14.3 % Immature Granulocyte % (Auto) 2.1 % Immature Granulocyte # (Auto) 0.24 K/uL Sodium Level 140 mmol/L Potassium Level 3.8 mmol/L Chloride Level 104 mmol/L Carbon Dioxide Level 28 mmol/L Anion Gap 8.0 mmol/L Blood Urea Nitrogen 17 mg/dl Creatinine 0.91 mg/dl Est Creatinine Clear Calc Drug Dose 89.5 ml/min Estimated GFR () 125.2 Estimated GFR (Non- 108.0 BUN/Creatinine Ratio 19.0 Random Glucose 76 mg/dl Calcium Level 9.1 mg/dl
[2016-04-02 14:57] VITALS: BP 118/80; PULSE 94; TEMP 37; O2SAT 97
[2016-04-02] MEDS ORDERED: AMOX875T PO (15:23)
[2016-04-02] MEDS ORDERED: Boost PO (15:23)
--- NOTE | 2016-04-02 15:29 | Discharge Instructions ---
Discharge Instructions Admission Reason for Admission: Pulmonary Abscess Discharge Discharge Diagnosis / Problem: Pulmonary abscess Discharge Goals Goal(s): Improve disease control, Therapeutic intervention Activity Recommendations Activity Limitations: resume your previous activity Lifting Limitations: none Exercise/Sports Limitations: as tolerated Shower/Bathe: no limitations . Instructions / Follow-Up Instructions / Follow-Up You were admitted to the hospital with a lung abscess. This is a pocket of pus in your lung from an infection. You had testing that confirmed you do NOT have Tuberculosis. You were treated with IV antibiotics and will be sent home with oral antibiotics. It is very important you take the oral antibiotics twice a day as scheduled. You will need to follow up with Dr. Morocho the Bpm Developer in 2 weeks. He will order you a repeat CT scan of your chest at that appointment. You should also follow up with the [facility] Technician for your Hepatitis C. Please follow up with a Primary Care Doctor within 1-2 weeks as well. Current Hospital Diet Patient's current hospital diet: Regular Diet Discharge Diet Recommended Diet: Regular Diet (and drink Boost shakes three times daily to improve your nutrition) Procedures Procedures Performed: None Pending Studies Studies pending at discharge: yes List of pending studies: AFB smear Medical Emergencies . Who to Call and When: Medical Emergencies: If at any time you feel your situation is an emergency, please call 911 immediately. . Non-Emergent Contact Non-Emergency issues call your: Primary Care Provider Call Non-Emergent contact if: temperature is above 101, your pain is not controlled, your pain is worsening, your pain is unusual for you, you have any medication questions . . "Provider Documentation" section prepared by Brittnee Grover. VTE Core Measure Inpt VTE Proph given/why not?: Unfractionated heparin SQ
[2016-04-02] MEDS ORDERED: AMOXICILLIN/CLAVULANATE TAB 875 MG TAB PO SCH (16:00)
[2016-04-02 16:17] VITALS: BP 118/80; PULSE 94; TEMP 37; O2SAT 97
--- NOTE | 2016-04-02 21:12 | Discharge Summary ---
Discharge Summary Admission Date: Mar 28, 2016 at 18:04 Discharge Date: Apr 02, 2016 Discharge Disposition: Home Principal Diagnosis: Pulmonary abscess Problems/Secondary Diagnoses: Hepatitis C Seizure disorder H/o TBI ADHD Procedures: None Consultations: Pulmonology Infectious Disease Medication Reconciliation New Medications: Amoxicillin & Pot Clavulanate (Augmentin 875-125 mg) 1 Tab Tab 875 MG PO BID for 14 Days, #28 TAB [Boost] () 1 CAN LIQD 1 CAN PO TIDM for 30 Days Continued Medications: Alprazolam (Xanax) 1 Mg Tab 1 MG PO TID, TAB Levetiracetam (Keppra) 250 Mg Tab 250 MG PO BID, #2 TAB Methylphenidate (Ritalin) 20 Mg Tab 20 MG PO TID PRN for Notification, TAB Discontinued Medications: Carisoprodol (Soma) 350 Mg Tab MG PO, 0 Refills Oxycodone/Acetaminophen (Percocet Unknown Dose) Tab PAIN Oxycodone/Acetaminophen (Percocet Unknown Dose) Tab PAIN Referrals At Discharge Follow up Referrals: Community Relations Director Referral - Within 2 Weeks with Nikolay Morocho MD Discharge Exam Doing well on day of discharge. Still coughing up thick sputum at times. Not requiring O2, no pain. No diarrhea, no rashes. TB testing all confirmed negative. Review of Systems: Constitutional: No chills, No fever Eyes: No problem reported ENT: No problem reported Respiratory: No shortness of breath Cardiovascular: No chest pain Abdomen: No diarrhea, No nausea, No pain Musculoskeletal: No problem reported Genitourinary - Male: No problem reported Neurologic: + memory loss (from TBI) Psychiatric: + anxiety Endocrine: No problem reported Hematologic / Lymphatic: No problem reported Integumentary: No problem reported Physical Exam: General Appearance: no apparent distress, + thin (with temporal wasting) Eyes: normal inspection, sclerae normal ENT: hearing grossly normal, pharynx normal Neck: trachea midline Respiratory/Chest: no respiratory distress, no accessory muscle use, + decreased breath sounds (at right upper lung field) Cardiovascular: regular rate, rhythm, no edema, no gallop, no murmur Abdomen / GI: normal bowel sounds, non tender, soft, no organomegaly Extremities: normal inspection, no calf tenderness, no pedal edema Neurologic/Psychiatric: alert, normal mood/affect, oriented x 3 Skin: normal color, warm/dry, no rash Hospital Course Pt is a 35 yo male with a history of head trauma, cervical spine fracture, hepatitis C infection, who was transferred from [facility] due to findings of a right upper lobe pulmonary abscess on CT scan. The patient has been dealing with a cough for 3 months. When the cough started he was producing thick, yellow/green mucous. He experienced night sweats, fevers, decreased appetite. He was seen at an urgent care and prescribed antibiotics on two different occasions since Nov 2015. Symptoms stayed away for approximately 6 weeks but then more recently the cough returned and is more severe. He is producing brown , rust colored sputum, no blood. He again is experiencing severe night sweats, fevers and chills and very poor appetite. He has lost approximately 20 pounds over the past 3 months, not trying to lose weight, and he appears very thin and frail. When his cough returned he was treated with antibiotics, Prednisone, Albuterol and Robitussin and symptoms did improve briefly but now are back even worse. He has never been admitted for pneumonia in the past. He has been in and out of custodial and there was concern for TB because of this. [facility] at [facility] his WBC is markedly elevated at 19, he is afebrile, vitals stable and breathing room air. Normal renal function and he was negative for HIV. Blood cultures sent and were negative. He was started on Zosyn, Vancomycin, and initially Diflucan. He had two negative AFB smears and a negative TB Gold test to rule out TB. His third AFB smear was still pending at the time of discharge but his TB gold test was indeed negative. His WBC count trended downward from 19 to 9.4-> 8. He had an ECHO completed on with LVEF of 50-55%, normal wall motion, and negative for vegetations. His blood cultures showed no growth and clinically he was much improved after 5 days of IV antibiotics. He will be discharged to home on 2 more weeks of Augmentin and will follow up with Pulmonology in 2 weeks. He will need repeat CT chest after seen by Pulmonology. As for his Hepatitis C, he had appointment set up with Johan LONDONO but needed to reschedule it due to this hospitalization. He was maintained on his home keppra for his seizure disorder, and home xanax and Ritalin for his anxiety and ADHD. He is of very nutritionally poor status and was recommended to start Boost shakes three times daily. He was discharged to home in stable condition and outpatient appointments were arranged for him. Total Time Spent: Greater than 30 minutes This includes examination of the patient, discharge planning, medication reconciliation, and communication with other providers. Discharge Instructions Please refer to the electronic Patient Visit Report (Discharge Instructions) for additional information. Follow-Up With Pulm in 2 weeks With GI within 2 weeks With PCP within 1 week. Additional Copies To BRETT ZACARIAS; Nikolay Morocho MD; Fidel Butler D.O.
== END 2016-04-02 17:00 | disposition home or self-care (01) | DRG 177 ==
LOC: ENRESERVDT → ENRESERVTM → ENRESERV → UNDOADMIN 17:51 → C.2T 17:51 → C.2E 03-29 10:18 → C.2T 03-29 10:18 → C.MSN 03-30 21:02
PROVIDERS: ADMIT Internal Medicine; ATTEND Family Medicine
DX: J85.1 Abscess of lung with pneumonia (principal); E43 Unspecified severe protein-calorie malnutrition; R64 Cachexia; R04.2 Hemoptysis; G40.909 Epilepsy, unspecified, not intractable, without status epilepticus; B19.20 Unspecified viral hepatitis C without hepatic coma; F17.210 Nicotine dependence, cigarettes, uncomplicated; Z82.49 Family history of ischemic heart disease and other diseases of the circulatory system; Z88.6 Allergy status to analgesic agent; Z88.5 Allergy status to narcotic agent; Z88.8 Allergy status to other drugs, medicaments and biological substances; F41.9 Anxiety disorder, unspecified; Z68.20 Body mass index [BMI] 20.0-20.9, adult; F90.9 Attention-deficit hyperactivity disorder, unspecified type; G89.29 Other chronic pain; Z81.1 Family history of alcohol abuse and dependence; Z79.899 Other long term (current) drug therapy; Z87.820 Personal history of traumatic brain injury; R63.4 Abnormal weight loss